=== PATIENT | female | born 2000 | race Caucasian/White ===

== ENCOUNTER 2022-06-04 16:21 | Emergency (ER) | payer MEDICAID ==
[~2022-06-04] VITALS: Ht 171.4 cm; Wt 60.0 kg
[2022-06-04 16:39] VITALS: BP 109/66
[2022-06-04] MEDS ORDERED: ALBU8.5H17 IH (17:03)
[2022-06-04 17:13] LABS: URINE HCG NEGATIVE (NEG)
== END 2022-06-04 17:35 | disposition home or self-care (01) ==
LOC: ER 16:22
DX: J20.9 Acute bronchitis, unspecified (principal); J45.909 Unspecified asthma, uncomplicated
CPT/HCPCS: 81025; 99283

== ENCOUNTER 2022-06-20 09:03 | Emergency (ER) | payer MEDICAID ==
[~2022-06-20] VITALS: Ht 170.2 cm; Wt 49.5 kg
[~2022-06-20 09:03] MED LIST: ALBU8.5H17 IH
[2022-06-20 09:18] VITALS: BP 117/77
== END 2022-06-20 12:44 | disposition home or self-care (01) ==
LOC: ER 09:03
DX: S90.32XA Contusion of left foot, initial encounter (principal); J45.909 Unspecified asthma, uncomplicated; X58.XXXA Exposure to other specified factors, initial encounter; Y93.41 Activity, dancing; Y92.89 Other specified places as the place of occurrence of the external cause; Y99.8 Other external cause status
CPT/HCPCS: 73630; 99283

== ENCOUNTER 2023-02-03 18:28 | Emergency (ER) | payer MEDICAID ==
[~2023-02-03] VITALS: Ht 170.2 cm; Wt 54.5 kg
[2023-02-03 18:40] VITALS: BP 96/58
[2023-02-03] MEDS ORDERED: ketorolac trometh inj. 60 MG/2 ML VIAL IM ONE (20:10)
[2023-02-03] MEDS ORDERED: IBUP-1986 PO (20:35)
== END 2023-02-03 21:04 | disposition home or self-care (01) ==
LOC: ER 18:29
DX: S93.602A Unspecified sprain of left foot, initial encounter (principal); J45.909 Unspecified asthma, uncomplicated; Z79.899 Other long term (current) drug therapy; Z72.89 Other problems related to lifestyle; W23.0XXA Caught, crushed, jammed, or pinched between moving objects, initial encounter; Y93.89 Activity, other specified; Y92.89 Other specified places as the place of occurrence of the external cause; Y99.8 Other external cause status
CPT/HCPCS: 73630; 96372; 99284; J1885; L4360

== ENCOUNTER 2024-03-06 21:26 | Emergency (ER) | payer MEDICAID ==
[~2024-03-06] VITALS: Ht 170.2 cm; Wt 64.1 kg
[~2024-03-06 21:26] MED LIST changes: +IBUP-1986 PO
[2024-03-07] MEDS: TETanus/Pertussis (Acell)/Diphther VAC/PF (Tdap-Adult) 0.5ml syringe IMVAC ONE (01:59)
[2024-03-07 02:09] VITALS: BP 137/91; PULSE 86; RESP 14; TEMP 97.8; O2SAT 98
== END 2024-03-07 02:11 | disposition home or self-care (01) ==
LOC: ER 21:27
DX: S61.011A Laceration without foreign body of right thumb without damage to nail, initial encounter (principal); J45.909 Unspecified asthma, uncomplicated; Z79.1 Long term (current) use of non-steroidal anti-inflammatories (NSAID); Z72.89 Other problems related to lifestyle; W26.0XXA Contact with knife, initial encounter; Y93.89 Activity, other specified; Y92.090 Kitchen in other non-institutional residence as the place of occurrence of the external cause; Y99.8 Other external cause status
CPT/HCPCS: 90471; 90715; 99283

== ENCOUNTER 2024-11-21 14:36 | Emergency (ER) | payer MEDICAID ==
[~2024-11-21] VITALS: Ht 171.4 cm; Wt 60.0 kg
[2024-11-21] MEDS ORDERED: iohexol 300mg/ml 100ml inj. ONE (15:08)
[2024-11-21 15:12] LABS: URINE HCG NEGATIVE (NEG)
[2024-11-21 15:13] LABS: BILIRUBIN,URINE NEGATIVE (Neg); CLARITY,URINE CLOUDY (Clear); COLOR,URINE YELLOW (Yellow); GLUCOSE, URINE NEGATIVE (Neg); KETONES,URINE NEGATIVE (Neg); LEUKOCYTE ESTERASE ,URINE NEGATIVE (Neg); NITRITES, URINE NEGATIVE (Neg); OCCULT BLOOD,URINE NEGATIVE (Neg); PH,URINE 6.5 (4.8-8.0); PROTEIN,URINE NEGATIVE (Neg); UROBILINOGEN,URINE 0.2 E.U/dL (0.2-1.0)
[2024-11-21 15:33] LABS: UA COLLECTION TYPE CLN CATCH MIDSTREAM
[2024-11-21 15:33] LABS: BASOPHILS % (AUTO) 0.5 % (0-1); EOSINOPHILS % (AUTO) 0.7 % (0-6); HEMATOCRIT 39.4 % (35.0-45.0); HEMOGLOBIN 13.6 g/dl (12.0-16.0); LYMPHOCYTES # (AUTO) 1.7 X10'3 (1.1-4.8); LYMPHOCYTES % (AUTO) 25.7 % (21-51); MEAN CORPUSCULAR HEMOGLOBIN 32.6 PG (27.0-31.0); MEAN CORPUSCULAR HGB CONC 34.4 g/dL (33.0-36.5); MEAN CORPUSCULAR VOLUME 94.7 FL (78-98); MEAN PLATELET VOLUME 9.1 FL (7.4-10.4); MONOCYTES # (AUTO) 0.6 X10'3 (0-0.9); MONOCYTES % (AUTO) 9.8 % (2-12); NEUTROPHILS # (AUTO) 4.1 X10'3 (1.8-7.7); NEUTROPHILS % (AUTO) 63.3 % (42-75); PLATELET COUNT 281 X10'3 (140-440); RED BLOOD COUNT 4.16 X10'6 (4.20-5.60); RED CELL DISTRIBUTION WIDTH 13.5 % (11.5-14.5); WHITE BLOOD COUNT 6.5 X10'3 (4.5-11.0)
[2024-11-21 15:38] LABS: ALBUMIN 3.8 G/DL (3.4-5.0); ANION GAP 7 (8-16); BLOOD UREA NITROGEN 12 MG/DL (7-18); BUN/CREATININE RATIO 17.6 (10.0-20.0); CALCIUM 8.6 MG/DL (8.5-10.1); CHLORIDE 106 MMOL/L (99-107); CREATININE 0.68 MG/DL (0.40-0.90); GLUCOSE 81 MG/DL (70-104); POTASSIUM 4.3 MMOL/L (3.5-5.1); SODIUM 140 MMOL/L (135-145); TOTAL CARBON DIOXIDE 26.6 MMOL/L (24-32); eCRCL 120 ML/MIN; eGFR > 90 ML/MIN
[2024-11-21 15:44] LABS: WBC,URINE 0-4 /HPF (0-4)
[2024-11-21 15:45] LABS: BACTERIA,URINE 1+ /HPF (Neg); CAL OXALATE CRYSTALS 3+ /HPF (NEGATIVE); SQUAMOUS EPITHELIAL CELL,UR FEW /LPF (FEW)
[2024-11-21] MEDS: CefTRIAXone 2gm/D5W 50ml BAG 50 ML IV ONE (17:12)
[2024-11-21] MEDS: metroNIDAZOLE-Flagyl 500mg/NS 100 ML IV STA (17:33)
[2024-11-21] MEDS: doxycycline inj 100 MG in normal saline 100ml IV soln 100 ML IV STA (17:33)
[2024-11-21 17:46] VITALS: TEMP 97.5
[2024-11-21 19:49] VITALS: BP 120/76; PULSE 80; RESP 14; O2SAT 99
== END 2024-11-21 19:51 | disposition home or self-care (01) ==
LOC: ER 14:38
DX: N73.0 Acute parametritis and pelvic cellulitis (principal); J45.909 Unspecified asthma, uncomplicated; Z79.1 Long term (current) use of non-steroidal anti-inflammatories (NSAID); Z72.89 Other problems related to lifestyle
CPT/HCPCS: 36415; 74177; 80048; 81001; 81025; 83605; 84145; 85025; 87040; 96365; 96366; 96368; 99285; J0696; J3490; Q9967; 96367